=== PATIENT | female | born 1975 ===

== ENCOUNTER 2021-05-09 18:48 | Emergency (ER) | payer OTHER, MEDICAID ==
[2021-05-09 19:25] VITALS: BP 163/106; PULSE 97
[2021-05-09] MEDS ORDERED: Amoxicillin/Clavulanate K 875-125 MG Tab PO STA (20:42)
--- NOTE | 2021-05-09 20:46 | EDM.PDOC ---
ED HPI GENERAL MEDICAL PROBLEM - General Chief Complaint: Fever Stated Complaint: FEVER FROM SURGERY Time Seen by Provider: 05/09/21 19:00 Source of Information: Reports: Patient History Limitations: Reports: No Limitations - History of Present Illness INITIAL COMMENTS - FREE TEXT/NARRATIVE: Patient presented to the ED because of post op fever, facial pain and sinus congestion. He has a bunion surgery on the left foot a week ago. She also have URI s/s,no dyspnea, nausea or vomiting. - Related Data Allergies Allergy/AdvReac Type Severity Reaction Status Date / Time codeine Allergy Hives and Verified 05/09/21 20:16 Nightmares metronidazole [From Flagyl] Allergy Hives Verified 05/09/21 20:15 Home Meds: Home Meds Amoxicillin/Clavulanate K [Augmentin 875-125 MG] 1 tab PO BID #20 tablet 05/09/21 [Rx] buPROPion HCL [Wellbutrin Xl] 150 mg PO DAILY 05/09/21 [History] Past Medical History - Past Health History Medical/Surgical History: Denies Medical/Surgical History [employer] History: Reports: Social & Family History - Tobacco Use Tobacco Use Status *Q: Former Tobacco User ED ROS GENERAL - Review of Systems Review Of Systems: See Below Constitutional: Reports: No Symptoms HEENT: Reports: No Symptoms Respiratory: Reports: No Symptoms Cardiovascular: Reports: No Symptoms Endocrine: Reports: No Symptoms GI/Abdominal: Reports: No Symptoms : Reports: No Symptoms Musculoskeletal: Reports: No Symptoms Skin: Reports: No Symptoms Neurological: Reports: No Symptoms ED EXAM, GENERAL - Physical Exam Exam: See Below Exam Limited By: No Limitations General Appearance: Alert, No Apparent Distress Ears: Normal External Exam, Normal Canal Nose: Nasal Tenderness, Nasal Swelling Throat/Mouth: Normal Inspection, Normal Lips Head: Atraumatic, Normocephalic Neck: Normal Inspection, Supple, Non-Tender, Full Range of Motion Respiratory/Chest: No Respiratory Distress, Lungs Clear, Normal Breath Sounds, No Accessory Muscle Use, Chest Non-Tender Cardiovascular: Normal Peripheral Pulses, Regular Rate, Rhythm, No Edema, No Gallop, No JVD, No Murmur, No Rub GI/Abdominal: Normal Bowel Sounds, Soft, Non-Tender, No Organomegaly, No Distention, No Abnormal Bruit Back Exam: Normal Inspection, Full Range of Motion Extremities: Normal Inspection, Normal Range of Motion, Non-Tender, No Pedal Edema, Normal Capillary Refill Neurological: Alert, Oriented, CN II-XII Intact, Normal Cognition, Normal Gait, Normal Reflexes, No Motor/Sensory Deficits Psychiatric: Normal Affect Course - Vital Signs Text/Narrative:: Lab result was reviewed and discussed with patient Augmentin 875 mg PO x1 Last Recorded V/S: Last Vital Signs Temp 37.3 C 05/09/21 19:00 Pulse 97 05/09/21 19:00 Resp 20 05/09/21 19:00 BP 163/106 H 05/09/21 19:00 Pulse Ox 97 05/09/21 19:00 - Orders/Labs/Meds Orders: Active Orders 24 hr Category Date Time Status Chest 1V Frontal [CR] Stat Exams 05/09/21 19:26 Taken Isolation [COMM] Routine Oth 05/09/21 19:27 Ordered Labs: Laboratory Tests 05/09/21 05/09/21 05/09/21 Range/Units 19:30 19:30 19:35 WBC 6.1 (3.0-10.3) x10-3/uL RBC 4.22 (3.60-5.20) x10(6)uL Hgb 12.3 (11.4-15.5) g/dL Hct 36.2 (34.2-48.2) % MCV 85.9 (76.7-100.5) fL MCH 29.2 (23.9-33.9) pg MCHC 34.0 (31.9-34.8) g/dL RDW 13.0 (12.3-16.5) % Plt Count 199 (151-488) x10(3)uL MPV 8.2 (7.1-12.4) fL Neut % (Auto) 60.8 (30.8-76.2) % Lymph % (Auto) 27.3 (18.4-52.1) % [place] % (Auto) 8.0 (4.4-15.7) % Eos % (Auto) 3.2 (0.6-8.1) % Baso % (Auto) 0.7 (0.2-1.5) % Neut # (Auto) 3.7 (1.5-6.3) x10-3/uL Lymph # (Auto) 1.7 (1.0-4.4) x10-3/uL [place] # (Auto) 0.5 (0.3-1.0) x10-3/uL Eos # (Auto) 0.2 (0.0-0.8) x10-3/uL Baso # (Auto) 0.0 (0.0-0.1) x10-3/uL Sodium 138 (135-145) mmol/L Potassium 3.3 L (3.5-5.3) mmol/L Chloride 103 (100-110) mmol/L Carbon Dioxide 28 (21-32) mmol/L BUN 12 (7-18) mg/dL Creatinine 0.9 (0.55-1.02) mg/dL Est Cr Clr Drug Dosing TNP Estimated GFR (MDRD) > 60 (>60) BUN/Creatinine Ratio 13.3 (9-20) Glucose 105 (80-116) mg/dL Calcium 8.2 L (8.6-10.2) mg/dL Urine Color (YELLOW) Urine Appearance (CLEAR) Urine pH (5.0-6.5) Ur Specific [place] (1.010-1.025) Urine Protein (NEGATIVE) mg/dL Urine Glucose (UA) (NORMAL) mg/dL Urine Ketones (NEGATIVE) mg/dL Urine Occult Blood (NEGATIVE) Urine Nitrite (NEGATIVE) Urine Bilirubin (NEGATIVE) Urine Urobilinogen (NEGATIVE) mg/dL Ur Leukocyte Esterase (NEGATIVE) Urine RBC (0-5) Urine WBC (0-5) Ur Squamous Epith Cells (NS,R,O) Urine Bacteria (NS) SARS-CoV-2 RNA (SUNDAR) Negative (NEGATIVE) 05/09/21 Range/Units 19:40 WBC (3.0-10.3) x10-3/uL RBC (3.60-5.20) x10(6)uL Hgb (11.4-15.5) g/dL Hct (34.2-48.2) % MCV (76.7-100.5) fL MCH (23.9-33.9) pg MCHC (31.9-34.8) g/dL RDW (12.3-16.5) % Plt Count (151-488) x10(3)uL MPV (7.1-12.4) fL Neut % (Auto) (30.8-76.2) % Lymph % (Auto) (18.4-52.1) % [place] % (Auto) (4.4-15.7) % Eos % (Auto) (0.6-8.1) % Baso % (Auto) (0.2-1.5) % Neut # (Auto) (1.5-6.3) x10-3/uL Lymph # (Auto) (1.0-4.4) x10-3/uL [place] # (Auto) (0.3-1.0) x10-3/uL Eos # (Auto) (0.0-0.8) x10-3/uL Baso # (Auto) (0.0-0.1) x10-3/uL Sodium (135-145) mmol/L Potassium (3.5-5.3) mmol/L Chloride (100-110) mmol/L Carbon Dioxide (21-32) mmol/L BUN (7-18) mg/dL Creatinine (0.55-1.02) mg/dL Est Cr Clr Drug Dosing Estimated GFR (MDRD) (>60) BUN/Creatinine Ratio (9-20) Glucose (80-116) mg/dL Calcium (8.6-10.2) mg/dL Urine Color Yellow (YELLOW) Urine Appearance Clear (CLEAR) Urine pH 6.5 (5.0-6.5) Ur Specific [place] 1.015 (1.010-1.025) Urine Protein Negative (NEGATIVE) mg/dL Urine Glucose (UA) Normal (NORMAL) mg/dL Urine Ketones Negative (NEGATIVE) mg/dL Urine Occult Blood Negative (NEGATIVE) Urine Nitrite Negative (NEGATIVE) Urine Bilirubin Negative (NEGATIVE) Urine Urobilinogen Normal (NEGATIVE) mg/dL Ur Leukocyte Esterase Small H (NEGATIVE) Urine RBC 0-5 (0-5) Urine WBC 0-5 (0-5) Ur Squamous Epith Cells Few H (NS,R,O) Urine Bacteria Rare H (NS) SARS-CoV-2 RNA (SUNDAR) (NEGATIVE) Meds: Medications Discontinued Medications Generic Name Dose Route Start Last Admin Trade Name Freq PRN Reason Stop Dose Admin Amoxicillin/Clavulanate Potassium 1 tab 05/09/21 20:42 05/09/21 20:45 Amoxicillin/Clavulanate K 875-125 Mg Tab PO 05/09/21 20:43 1 tab NOW STA Administration Departure - Departure Time of Disposition: 20:45 Disposition: Home, Self-Care 01 Condition: Good Clinical Impression: Sinusitis, URI (upper respiratory infection) - Discharge Information Prescriptions: Amoxicillin/Clavulanate K [Augmentin 875-125 MG] 1 tab PO BID #20 tablet Instructions: Sinusitis, Adult, [id number] Referrals: Candice Cárdenas, [employer] [Primary Care Provider] - Forms: ED Department Discharge Additional Instructions: Please read discharge instructions on sinusitis Drink 2 liters of water daily Augmentin 875 mg twice daily for 10 days Ibuprofen 800 mg with tylenol 1000 mg every 9 hours as needed for fever/pain Follow up as needed Sepsis Event Note (ED) - Focused Exam Vital Signs: Vital Signs Temp Pulse Resp BP Pulse Ox 05/09/21 19:00 37.3 C 97 20 163/106 H 97 - My Orders Last 24 Hours: My Active Orders 05/09/21 19:26 Chest 1V Frontal [CR] Stat 05/09/21 19:27 Isolation [COMM] Routine - Assessment/Plan Last 24 Hours: My Active Orders 05/09/21 19:26 Chest 1V Frontal [CR] Stat 05/09/21 19:27 Isolation [COMM] Routine
== END 2021-05-09 21:00 | disposition home or self-care (01) ==
LOC: FB.ED 18:48
DX: J32.9 Chronic sinusitis, unspecified (principal); Z88.5 Allergy status to narcotic agent; Z88.1 Allergy status to other antibiotic agents; Z87.891 Personal history of nicotine dependence; Z20.822 Contact with and (suspected) exposure to COVID-19
CPT/HCPCS: 36415; 71045; 80048; 81001; 85025; 87635; 87804; 99283; A9270; U0002

== ENCOUNTER 2022-01-04 01:04 | Emergency (ER) | payer OTHER, MEDICAID ==
[2022-01-04] MEDS ORDERED: Acetaminophen 500 MG Tab PO ONE (01:40)
[2022-01-04] MEDS ORDERED: Ibuprofen 800 MG Tab PO ONE (01:40)
[2022-01-04] MEDS ORDERED: Ibuprofen 600 MG Tab PO ONE (01:49)
[2022-01-04 02:59] VITALS: BP 131/82; PULSE 86
== END 2022-01-04 03:10 | disposition home or self-care (01) ==
LOC: FB.ED 01:04
DX: S93.401A Sprain of unspecified ligament of right ankle, initial encounter (principal); Z88.5 Allergy status to narcotic agent; Z88.1 Allergy status to other antibiotic agents; X50.1XXA Overexertion from prolonged static or awkward postures, initial encounter
CPT/HCPCS: 73610-RT; 99281; 99283; A9270-GY

== ENCOUNTER 2022-11-18 18:17 | Emergency (ER) | payer OTHER, MEDICAID ==
[2022-11-18 18:44] VITALS: BP 112/82; PULSE 86
[2022-11-18] MEDS: Cephalexin 500 MG Cap PO ONE (18:55)
[2022-11-18] MEDS: Fluconazole 150 MG Tab PO ONE (18:57)
[2022-11-18] MEDS: Fluconazole 100 MG Tab PO SCH (18:58)
== END 2022-11-18 19:14 | disposition home or self-care (01) ==
LOC: FB.ED 18:17
DX: L03.116 Cellulitis of left lower limb (principal); Z88.5 Allergy status to narcotic agent; Z91.09 Other allergy status, other than to drugs and biological substances; Z88.1 Allergy status to other antibiotic agents
CPT/HCPCS: 73630; 99283; A9270